=== PATIENT | female | born 1960 | race Caucasian/White ===

== ENCOUNTER 2022-02-08 15:00 | Emergency (ER) | payer BC, SELFPAY ==
[2022-02-08 15:10] VITALS: BP 144/59; PULSE 51; RESP 16; TEMP 36.4; O2SAT 99
--- NOTE | 2022-02-08 15:42 | ED.GENADULT ---
HPI - General Adult General Chief complaint: Head Injury Stated complaint: head injury Source: patient and family Mode of arrival: ambulatory Limitations: no limitations History of Present Illness HPI narrative: Patient presents for evaluation after experiencing a fall just prior to arrival. She indicates that she was leaning over throwing trash away when she fell, hit her head against dining room table and landed on the floor. She believes she had a loss of consciousness for just a few seconds. She is not on blood thinners. She indicates that she cannot definitively state whether she had any symptoms that preceded her fall. She does have episodes where she has difficulty with her balance. She believes she may have been dizzy when leaning over, which contributed to the fall. She currently reports pain in the occipital region of her head rated 5 out of 10 in severity and pain in her neck radiating into her left shoulder also rated 5 out of 10 in severity. No loss of range of motion. No vomiting since episode. No additional complaints or concerns. Related Data Home Medications Medication Instructions Recorded Confirmed aspirin 81 mg tablet,delayed 81 mg PO DAILY 02/08/22 02/08/22 release (Osiel Low Dose Aspirin) furosemide 40 mg tablet 40 mg PO DAILY 02/08/22 02/08/22 levothyroxine 200 mcg tablet 150 mcg PO DAILY 02/08/22 02/08/22 potassium chloride 20 mEq 20 meq PO DAILY 02/08/22 02/08/22 tablet,extended release(part/cryst) rosuvastatin 20 mg tablet 20 mg PO DAILY 02/08/22 02/08/22 Allergies Allergy/AdvReac Type Severity Reaction Status Date / Time Iodinated Contrast Media Allergy Unknown Numbness Verified 02/08/22 15:13 peanut Allergy Unknown Other Verified 02/08/22 15:13 Penicillins Allergy Unknown Other Verified 02/08/22 15:13 shellfish derived Allergy Unknown Other Verified 02/08/22 15:13 Contrast Media Allergy Unknown Other Uncoded 02/08/22 15:13 SHELLFISH Allergy Unknown Other Uncoded 02/08/22 15:13 Review of Systems Review of Systems: CONSTITUTIONAL: Denies fever, chills, or sweats. EYES: Denies visual changes, redness, or discharge. ENT: Denies rhinorrhea, congestion, sore throat, or otalgia. CARDIOVASCULAR: Denies chest pain, palpitations, or edema. RESPIRATORY: Denies cough or dyspnea. GASTROINTESTINAL: Denies abdominal pain, nausea, vomiting, or diarrhea. GENITOURINARY: Denies dysuria or hematuria. SKIN: Denies rash or itching. MUSCULOSKELETAL: Reports neck pain with radiation to left shoulder NEUROLOGIC: Reports headache. Denies numbness, dizziness, or weakness. PSYCHIATRIC: Denies anxiety or depression. [facility] Past Medical History Medical History (Updated 02/08/22 @ 15:48 by ASHLEY MejíaP, ) Diabetes Jose's disease Hypertension Surgical History Surgical History History of bariatric surgery Family History Family History Mother Depression Asthma Family history of cardiovascular disease Family history of malignant neoplasm Family history of renal failure Father Diabetes mellitus Family history of arthritis Family history of malignant neoplasm Social History Social History Smoking status: Never smoker Alcohol intake: never Substance use: never Living arrangements: with family Gender identity (if verbalized by the patient): Female Spiritual care concerns: No Exam Narrative: GENERAL: Well-appearing, well-nourished, and in no acute distress. HEAD: Normocephalic. Soft tissue swelling noted over the occipital region of her head EYES: PERRLA and EOMI. ENT: Nares clear, no rhinorrhea or epistaxis. Mucous membranes moist. Oropharynx without tonsillar hypertrophy exudate or other lesions. Bilateral TMs pearly demarco nonbulging NECK: Supple. No adenopathy or masses. N
== END 2022-02-08 15:43 | disposition short-term general hospital (02) ==
PROVIDERS: Emergency Provider Nurse Practitioner; PCP Student in an Organized Health Care Education/Training Program
DX: S06.9X9A Unspecified intracranial injury with loss of consciousness of unspecified duration, initial encounter (principal); S16.1XXA Strain of muscle, fascia and tendon at neck level, initial encounter; W19.XXXA Unspecified fall, initial encounter; E11.9 Type 2 diabetes mellitus without complications; E06.3 Autoimmune thyroiditis; I10 Essential (primary) hypertension; Z79.82 Long term (current) use of aspirin
CPT/HCPCS: 99212; G0463

== ENCOUNTER 2022-03-01 10:22 | Emergency (ER) | payer BC, SELFPAY ==
[2022-03-01 10:32] VITALS: BP 134/57; PULSE 70; RESP 20; TEMP 36.3; O2SAT 100
--- NOTE | 2022-03-01 10:34 | ED.ALLEREA ---
HPI - Allergic Reaction General Chief complaint: Allergic Reaction Stated complaint: Allergic Reaction Time Seen by Provider: 03/01/22 10:22 Source: patient and RN notes reviewed Mode of arrival: ambulatory Limitations: no limitations History of Present Illness HPI narrative: 61-year-old female presents with concern for allergic reaction. Reports she has an allergy to peanuts. She reports earlier today she unknowingly ate almonds prior to arrival, she reports she has had a reaction to almonds in the past. She reports she has an EpiPen but she did not bring it with her. She reports she feels like it is difficult to breathe, she denies swollen lips, swollen tongue, rash, vomiting or diarrhea. MD complaint: allergic reaction Related Data Home Medications Medication Instructions Recorded Confirmed aspirin 81 mg tablet,delayed 81 mg PO DAILY 02/08/22 03/01/22 release (Osiel Low Dose Aspirin) furosemide 40 mg tablet 40 mg PO DAILY 02/08/22 03/01/22 levothyroxine 200 mcg tablet 150 mcg PO DAILY 02/08/22 03/01/22 potassium chloride 20 mEq 20 meq PO DAILY 02/08/22 03/01/22 tablet,extended release(part/cryst) rosuvastatin 20 mg tablet 20 mg PO DAILY 02/08/22 03/01/22 Allergies Allergy/AdvReac Type Severity Reaction Status Date / Time tree nut Allergy Intermediate Difficulty Verified 03/01/22 10:44 Breathing Iodinated Contrast Media Allergy Unknown Numbness Verified 03/01/22 10:32 peanut Allergy Unknown Other Verified 03/01/22 10:32 Penicillins Allergy Unknown Other Verified 03/01/22 10:32 shellfish derived Allergy Unknown Other Verified 03/01/22 10:32 Contrast Media Allergy Unknown Other Uncoded 03/01/22 10:32 SHELLFISH Allergy Unknown Other Uncoded 03/01/22 10:32 Review of Systems Review of Systems: CONSTITUTIONAL: Denies malaise, chills, sweats, or fever. EYES: Denies visual changes, redness, or discharge. ENT: Denies rhinorrhea, congestion, sinus pain, otalgia and sore throat. Denies swollen lips or tongue, trouble swallowing CARDIOVASCULAR: Denies chest pain, palpitations, or edema. RESPIRATORY: Reports cough. Reports dyspnea. GASTROINTESTINAL: Denies abdominal pain, nausea, vomiting, diarrhea SKIN: Denies rash or itching. MUSCULOSKELETAL: Denies myalgia. NEUROLOGIC: Denies headache. All systems reviewed & are unremarkable except as noted in HPI and below PMFSH Past Medical History Medical History (Updated 03/01/22 @ 10:46 by Donna Rivera NP) Diabetes Jose's disease Hypertension Surgical History Surgical History History of bariatric surgery Family History Family History Mother Depression Asthma Family history of cardiovascular disease Family history of malignant neoplasm Family history of renal failure Father Diabetes mellitus Family history of arthritis Family history of malignant neoplasm Social History Social History Smoking status: Never smoker Alcohol intake: never Substance use: never Gender identity (if verbalized by the patient): Female Spiritual care concerns: No Comments At time of signature, agree with nursing past medical, surgical, social and family history. There is no relevant family history pertinent to the presenting complaint Exam Narrative: GENERAL: Well-appearing, well-nourished, and in no acute distress. HEAD: Normocephalic EYES: PERRLA, conjunctivae clear ENT: Nares clear no discharge. Mucous membranes moist. Oropharynx not erythematous without lesions. Tonsils not enlarged and without exudate, no drooling, no hoarseness, no trismus, uvula midline. No angioedema noted NECK: Supple. No lymphadenopathy CHEST: Clear to auscultation, breath sounds equal. No wheezing, rhonchi, rales, or stridor. No respiratory distress, speaks in full sentences. HEART: Regular r
[2022-03-01] MEDS: diphenhydrAMINE HCL ELIXIR 12.5 MG/5 ML UDC 25 MG PO (10:47)
[2022-03-01] MEDS: methylPREDNISolone SOD SUCC 125 MG VIAL IM (10:47)
[2022-03-01 11:12] VITALS: BP 115/60; PULSE 60; RESP 20; O2SAT 100
== END 2022-03-01 11:32 | disposition home or self-care (01) ==
PROVIDERS: Emergency Provider Nurse Practitioner; PCP Student in an Organized Health Care Education/Training Program
DX: T78.1XXA Other adverse food reactions, not elsewhere classified, initial encounter (principal); R06.00 Dyspnea, unspecified; E11.9 Type 2 diabetes mellitus without complications; I10 Essential (primary) hypertension; E06.3 Autoimmune thyroiditis
CPT/HCPCS: 96372; 99213; A9270; G0463; J2930